=== PATIENT | female | born 1995 | race Hispanic/Latino ===

== ENCOUNTER 2022-02-15 14:28 | Inpatient (IN) | payer OTHER ==
[~2022-02-15] VITALS: Ht 157.5 cm; Wt 115.7 kg
[2022-02-15 15:54] LABS: MEAN CORPUSCULAR HEMOGLOBIN 25.6 pg (27.0-33.0); MEAN CORPUSCULAR HGB CONC 31.3 g/dL (32.0-36.0); MEAN CORPUSCULAR VOLUME 82.1 fL (79-99); RED BLOOD CELL COUNT(AUTO) 3.9 MIL/uL (4.00-5.50); RED CELL DISTRIBUTION WIDTH 14.9 % (11.0-15.5); WHITE BLOOD COUNT (AUTO) 9.1 K/uL (4.8-10.8)
[2022-02-15 15:56] LABS: APPEARANCE,URINE Clear (CLEAR); BILIRUBIN,URINE Negative (NEGATIVE); COLOR,URINE Yellow (YELLOW); GLUCOSE, URINE (UA) Negative (NEGATIVE); KETONES,URINE Trace mg/dL (NEGATIVE); LEUKOCYTE ESTERASE ,URINE Negative (NEGATIVE); NITRATE,URINE Negative (NEGATIVE); OCCULT BLOOD,URINE Negative (NEGATIVE); PH,URINE 6.5 (5.0-8.0); PROTEIN,URINE POS 1+ mg/dL (NEGATIVE)
[2022-02-15 16:07] LABS: CREATININE 0.7 mg/dL (0.5-1.5); POTASSIUM 3.7 mmol/L (3.5-5.1)
[2022-02-15 16:09] LABS: INR 0.93 (0.85-1.15); PROTHROMBIN TIME 9.9 SEC (9.6-11.6)
[2022-02-15 16:11] LABS: PARTIAL THROMBOPLASTIN TIME 23.9 SEC (26.3-35.5)
[2022-02-15 16:14] LABS: BACTERIA,URINE None Seen /HPF (None Seen); MUCUS,URINE Few LPF (None Seen); RBC,URINE 0-1 /HPF (0-1); SQUAMOUS EPITHELIAL CELL,UR None Seen /HPF (0-2); WBC,URINE 0-1 /HPF (0-1)
[2022-02-15 16:15] LABS: ALBUMIN 2.8 g/dL (3.5-5.0); BILIRUBIN,TOTAL 0.3 mg/dL (0.2-1.0); TOTAL PROTEIN, SERUM 7.2 g/dL (6.0-8.3); URIC ACID 4.2 mg/dL (2.6-7.2)
[2022-02-15] MEDS ORDERED: ROPIVACAINE 0.2% 100ML VIAL 100 ML EP SCH (17:00)
[2022-02-15] MEDS ORDERED: LACTATED RINGERS 500 ML 500 ML IV PRN (17:00)
[2022-02-15] MEDS ORDERED: MEPERIDINE-PF 50 MG/ML SYG IVP PRN (17:00)
[2022-02-15] MEDS ORDERED: NALOXONE HCL 0.4 MG/1 ML ML IV PRN (17:00)
[2022-02-15] MEDS ORDERED: PROMETHAZINE HCL 25 MG/ML 1ML AMPULE IM PRN (17:00)
[2022-02-15] MEDS ORDERED: AMPICILLIN 2GM+NS 100ML 100 ML IV SCH (17:00)
[2022-02-15] MEDS: AMPICILLIN 1GM+NS 50ML 50 ML IV SCH ×2 (17:00→21:54)
[2022-02-15] MEDS ORDERED: EPHEDRINE SULFATE 50 MG/ML AMPULE IVP PRN (17:00)
[2022-02-15] MEDS ORDERED: MISOPROSTOL 100 MCG TABLET VG SCH (19:00)
[2022-02-15 19:14] LABS: AMPHET/METH SCREEN,URINE NEGATIVE (NEGATIVE); BARBITURATE SCREEN, URINE NEGATIVE (NEGATIVE); BENZODIAZEPINES SCREEN,URINE NEGATIVE (NEGATIVE); CANNABINOID SCREEN,URINE NEGATIVE (NEGATIVE); COCAINE SCREEN,URINE NEGATIVE (NEGATIVE); OPIATE SCREEN,URINE NEGATIVE (NEGATIVE); PHENCYCLIDINE SCREEN,URINE NEGATIVE (NEGATIVE)
[2022-02-15] MEDS: MISOPROSTOL 25 MCG TABLET VG SCH ×2 (19:50→23:41)
[2022-02-16] MEDS: AMPICILLIN 1GM+NS 50ML 50 ML IV SCH ×6 (01:37→21:44)
[2022-02-16] MEDS: LACTATED RINGERS 1000ML 1,000 ML IV PRN ×3 (01:39→23:07)
[2022-02-16] MEDS: MISOPROSTOL 25 MCG TABLET VG SCH ×2 (03:36→21:45)
[2022-02-16] MEDS ORDERED: OXYTOCIN-LR 20 UNITS/1000 ML 1,000 ML IV SCH (07:00)
[2022-02-16] MEDS ORDERED: MISOPROSTOL 25 MCG TABLET ONE (17:45)
[2022-02-16] MEDS ORDERED: MISOPROSTOL 100 MCG TABLET VG SCH (18:00)
[2022-02-17] MEDS: AMPICILLIN 1GM+NS 50ML 50 ML IV SCH ×4 (01:46→10:32)
[2022-02-17] MEDS: MISOPROSTOL 25 MCG TABLET VG SCH ×2 (01:47→06:00)
[2022-02-17] MEDS ORDERED: OXYTOCIN-LR 20 UNITS/1000 ML 1,000 ML IV SCH (06:00)
[2022-02-17] MEDS: LACTATED RINGERS 1000ML 1,000 ML IV PRN (08:44)
== END 2022-02-17 16:37 | disposition home or self-care (01) | DRG 833 ==
LOC: LDH 14:28 → OBSVTOIN 14:28
PROVIDERS: ADMIT Obstetrics & Gynecology; ATTEND Obstetrics & Gynecology
DX: O13.3 Gestational [pregnancy-induced] hypertension without significant proteinuria, third trimester (principal); O99.213 Obesity complicating pregnancy, third trimester; O99.820 Streptococcus B carrier state complicating pregnancy; Z3A.38 38 weeks gestation of pregnancy
CPT/HCPCS: 36415; 76805; 80053; 80305; 81001; 84550; 85027; 85384; 85610; 85730; 86592; 86850; 86900; 86901; 87340; G0378; J0290; J2590; J7120

== ENCOUNTER 2022-02-22 14:06 | Inpatient (IN) | payer OTHER ==
[~2022-02-22] VITALS: Ht 157.5 cm; Wt 115.7 kg
[2022-02-22] MEDS: LACTATED RINGERS 1000ML 1,000 ML IV PRN (14:45)
[2022-02-22 15:24] LABS: APPEARANCE,URINE Clear (CLEAR); BILIRUBIN,URINE Negative (NEGATIVE); COLOR,URINE Yellow (YELLOW); GLUCOSE, URINE (UA) Negative (NEGATIVE); KETONES,URINE Trace mg/dL (NEGATIVE); LEUKOCYTE ESTERASE ,URINE Trace (NEGATIVE); NITRATE,URINE Negative (NEGATIVE); OCCULT BLOOD,URINE Negative (NEGATIVE); PH,URINE 6.5 (5.0-8.0); PROTEIN,URINE POS 2+ mg/dL (NEGATIVE)
[2022-02-22 15:25] LABS: MEAN CORPUSCULAR HEMOGLOBIN 24.9 pg (27.0-33.0); MEAN CORPUSCULAR HGB CONC 30.6 g/dL (32.0-36.0); MEAN CORPUSCULAR VOLUME 81.2 fL (79-99); PLATELET COUNT (AUTO) 313 K/uL (130-400); RED BLOOD CELL COUNT(AUTO) 3.82 MIL/uL (4.00-5.50); RED CELL DISTRIBUTION WIDTH 15.2 % (11.0-15.5); WHITE BLOOD COUNT (AUTO) 8.1 K/uL (4.8-10.8)
[2022-02-22] MEDS ORDERED: MEPERIDINE-PF 50 MG/ML SYG IVP PRN (15:30)
[2022-02-22] MEDS ORDERED: PROMETHAZINE HCL 25 MG/ML 1ML AMPULE IM PRN (15:30)
[2022-02-22] MEDS ORDERED: EPHEDRINE SULFATE 50 MG/ML AMPULE IVP PRN (15:30)
[2022-02-22] MEDS ORDERED: LACTATED RINGERS 500 ML 500 ML IV PRN (15:30)
[2022-02-22] MEDS ORDERED: OXYTOCIN-LR 20 UNITS/1000 ML 1,000 ML IV SCH (15:30)
[2022-02-22] MEDS ORDERED: NALOXONE HCL 0.4 MG/1 ML ML IV PRN (15:30)
[2022-02-22 15:31] LABS: INR 0.93 (0.85-1.15); PROTHROMBIN TIME 9.8 SEC (9.6-11.6)
[2022-02-22 15:33] LABS: PARTIAL THROMBOPLASTIN TIME 25.3 SEC (26.3-35.5)
[2022-02-22 15:35] LABS: CREATININE 0.7 mg/dL (0.5-1.5); POTASSIUM 3.8 mmol/L (3.5-5.1)
[2022-02-22 15:37] LABS: BACTERIA,URINE Few /HPF (None Seen); MUCUS,URINE Moderate LPF (None Seen); RBC,URINE 0-1 /HPF (0-1); SQUAMOUS EPITHELIAL CELL,UR Few /HPF (0-2)
[2022-02-22 15:39] LABS: AMPHET/METH SCREEN,URINE NEGATIVE (NEGATIVE); BARBITURATE SCREEN, URINE NEGATIVE (NEGATIVE); BENZODIAZEPINES SCREEN,URINE NEGATIVE (NEGATIVE); CANNABINOID SCREEN,URINE NEGATIVE (NEGATIVE); COCAINE SCREEN,URINE NEGATIVE (NEGATIVE); OPIATE SCREEN,URINE NEGATIVE (NEGATIVE); PHENCYCLIDINE SCREEN,URINE NEGATIVE (NEGATIVE)
[2022-02-22 15:40] LABS: ALBUMIN 2.5 g/dL (3.5-5.0); BILIRUBIN,TOTAL 0.2 mg/dL (0.2-1.0); TOTAL PROTEIN, SERUM 6.6 g/dL (6.0-8.3); URIC ACID 4.3 mg/dL (2.6-7.2)
[2022-02-22] MEDS ORDERED: MAGNESIUM 4GM PREMIX 100ML 100 ML IV PRN (17:30)
[2022-02-22] MEDS ORDERED: MAGNESIUM SULFATE 40GM/1000ML 1,000 ML IV PRN (17:30)
[2022-02-22] MEDS ORDERED: CALCIUM GLUC 1GM/10ML VIAL IV PRN (17:30)
[2022-02-22] MEDS ORDERED: MISOPROSTOL 25 MCG TABLET ONE ×2 (18:35→22:56)
[2022-02-22] MEDS: MISOPROSTOL 100 MCG TABLET VG SCH (18:40)
[2022-02-23] MEDS: LACTATED RINGERS 1000ML 1,000 ML IV PRN (00:18)
[2022-02-23] MEDS ORDERED: MISOPROSTOL 25 MCG TABLET ONE (03:04)
[2022-02-23] MEDS ORDERED: OXYTOCIN-LR 20 UNITS/1000 ML 1,000 ML IV SCH (06:00)
[2022-02-23] MEDS ORDERED: CALDOLOR 800MG+NS 250ML 250 ML IV PRN (09:30)
[2022-02-23] MEDS ORDERED: CEFAZOLIN SODIUM 1 GM VIAL IVP PRN (09:30)
[2022-02-23] MEDS ORDERED: MISOPROSTOL 200 MCG TABLET ONE (10:49)
[2022-02-23] MEDS ORDERED: OXYTOCIN 10 USP UNITS/ML IV PRN (13:00)
[2022-02-23] MEDS ORDERED: ONDANSETRON 4MG INJ IVP PRN (13:00)
[2022-02-23] MEDS ORDERED: MAGNESIUM 4GM PREMIX 100ML 100 ML IV PRN (13:00)
[2022-02-23] MEDS ORDERED: CALCIUM GLUC 1GM/10ML VIAL IV PRN (13:00)
[2022-02-23] MEDS ORDERED: MEPERIDINE-PF 75 MG/ML SYG IM PRN (13:00)
[2022-02-23] MEDS ORDERED: PROMETHAZINE HCL 25 MG/ML 1ML AMPULE IM PRN (13:00)
[2022-02-23] MEDS ORDERED: LACTATED RINGERS 1000ML 1,000 ML IV SCH (13:00)
[2022-02-23] MEDS ORDERED: MAGNESIUM SULFATE 40GM/1000ML 1,000 ML IV PRN (13:00)
[2022-02-23] MEDS ORDERED: DiphenhydrAMINE HCL 50 MG/ML VIAL IVP PRN (13:00)
[2022-02-23] MEDS ORDERED: NALOXONE HCL 0.4 MG/1 ML ML IVP PRN ×2 (13:30)
[2022-02-23] MEDS ORDERED: LORATADINE 10 MG TABLET PO PRN (13:30)
[2022-02-23 17:20] VITALS: BP 142/76
[2022-02-23] MEDS ORDERED: PREN1TAB80 PO (17:37)
[2022-02-23 19:15] VITALS: BP 137/87
[2022-02-23] MEDS: CALDOLOR 800MG+NS 250ML 250 ML IV SCH (20:09)
[2022-02-23] MEDS: DEXTROSE 5 %-0.45 % NACL 1,000 ML IV SCH (22:50)
[2022-02-23 23:30] VITALS: BP 134/81
[2022-02-24 03:55] VITALS: BP 112/77
[2022-02-24] MEDS: CALDOLOR 800MG+NS 250ML 250 ML IV SCH (03:58)
[2022-02-24] MEDS: DEXTROSE 5 %-0.45 % NACL 1,000 ML IV SCH (03:59)
[2022-02-24] MEDS ORDERED: BISACODYL 10 MG SUPP.RECT RC PRN (05:30)
[2022-02-24] MEDS ORDERED: ACETAMINOPHEN WITH CODEINE 1 TAB TAB PO PRN (05:30)
[2022-02-24] MEDS ORDERED: HYDROCODONE/ACETAMINOPHEN 5/325 MG TAB PO PRN (05:30)
[2022-02-24] MEDS ORDERED: ACETAMINOPHEN 500 MG TABLET PO PRN (05:30)
[2022-02-24] MEDS ORDERED: LANOLIN 30GM OINTMENT TP PRN (05:30)
[2022-02-24 06:48] LABS: HEMATOCRIT 27.4 % (36-48); MEAN CORPUSCULAR HEMOGLOBIN 24.6 pg (27.0-33.0); MEAN CORPUSCULAR HGB CONC 29.9 g/dL (32.0-36.0); MEAN CORPUSCULAR VOLUME 82.3 fL (79-99); RED BLOOD CELL COUNT(AUTO) 3.33 MIL/uL (4.00-5.50); RED CELL DISTRIBUTION WIDTH 15.4 % (11.0-15.5); WHITE BLOOD COUNT (AUTO) 7.1 K/uL (4.8-10.8)
[2022-02-24 06:54] VITALS: BP 122/77
[2022-02-24] MEDS: SIMETHICONE 80 MG TAB.CHEW PO PRN ×3 (08:48→20:31)
[2022-02-24] MEDS: DOCUSATE SODIUM 100 MG CAP PO SCH ×2 (08:48→20:31)
[2022-02-24 11:40] VITALS: BP 137/89
[2022-02-24] MEDS: IBUPROFEN 800 MG TAB PO SCH ×2 (15:08→20:32)
[2022-02-24 15:30] VITALS: BP_SYST 108; BP_SYST 133; BP_DIAS 70; BP_DIAS 73
[2022-02-24 19:15] VITALS: BP 141/77
[2022-02-24 23:25] VITALS: BP 137/72
[2022-02-24] MEDS: MISOPROSTOL 100 MCG TABLET VG SCH (23:30)
[2022-02-25 03:56] VITALS: BP 145/77
[2022-02-25] MEDS: IBUPROFEN 800 MG TAB PO SCH ×2 (04:19→14:35)
[2022-02-25 07:09] VITALS: BP 130/68
[2022-02-25] MEDS: SIMETHICONE 80 MG TAB.CHEW PO PRN ×2 (08:50→14:43)
[2022-02-25] MEDS: DOCUSATE SODIUM 100 MG CAP PO SCH (08:58)
[2022-02-25 12:00] VITALS: BP 139/80
[2022-02-25] MEDS ORDERED: IBUP-2077 PO (14:25)
[2022-02-25] MEDS ORDERED: DOCU-116 PO (14:25)
[2022-02-25] MEDS ORDERED: ACET-2079 PO (14:27)
[2022-02-25 15:25] VITALS: BP 134/80
== END 2022-02-25 15:05 | disposition home or self-care (01) | DRG 788 ==
LOC: LDH 14:06 → WSH 02-23 17:25
PROVIDERS: ADMIT Obstetrics & Gynecology; ATTEND Obstetrics & Gynecology
PROC: 10D00Z1 Extraction of Products of Conception, Low, Open Approach (ICD-10-PCS; principal; 2022-02-23 11:25)
DX: O61.9 Failed induction of labor, unspecified (principal); O14.04 Mild to moderate pre-eclampsia, complicating childbirth; O99.214 Obesity complicating childbirth; Z3A.39 39 weeks gestation of pregnancy; Z37.0 Single live birth; Z20.822 Contact with and (suspected) exposure to COVID-19; O99.02 Anemia complicating childbirth; O13.4 Gestational [pregnancy-induced] hypertension without significant proteinuria, complicating childbirth
CPT/HCPCS: 36415; 59510; 80053; 80305; 81001; 83735; 84550; 85027; 85384; 85610; 85730; 86592; 86850; 86900; 86901; 87340; A4344; G0378; J0690; J1741; J2590; J3475; J7120

== ENCOUNTER 2022-03-02 12:17 | Observation (INO) | payer OTHER ==
[~2022-03-02] VITALS: Ht 157.5 cm; Wt 104.0 kg
[~2022-03-02 12:17] MED LIST: ACET-2079 PO; DOCU-116 PO; IBUP-2077 PO; PREN1TAB80 PO
[2022-03-02] MEDS ORDERED: HYDRALAZINE 20MG/ML VIAL ONE (12:58)
[2022-03-02] MEDS ORDERED: HYDRALAZINE 20MG/ML VIAL IV SCH (13:30)
[2022-03-02] MEDS ORDERED: LACTATED RINGERS 1000ML 1,000 ML IV PRN (13:30)
[2022-03-02 13:34] LABS: APPEARANCE,URINE Clear (CLEAR); BILIRUBIN,URINE Negative (NEGATIVE); COLOR,URINE Yellow (YELLOW); GLUCOSE, URINE (UA) Negative (NEGATIVE); KETONES,URINE Negative (NEGATIVE); LEUKOCYTE ESTERASE ,URINE Negative (NEGATIVE); NITRATE,URINE Negative (NEGATIVE); OCCULT BLOOD,URINE Negative (NEGATIVE); PH,URINE 7.5 (5.0-8.0); PROTEIN,URINE Negative (NEGATIVE); UROBILINOGEN,URINE 0.2 mg/dL (0.2-1.0)
[2022-03-02 13:35] LABS: INR 0.94 (0.85-1.15); PROTHROMBIN TIME 10.3 SEC (9.6-11.6)
[2022-03-02 13:37] LABS: PARTIAL THROMBOPLASTIN TIME 27.9 SEC (26.3-35.5)
[2022-03-02 13:38] LABS: ALBUMIN 3.2 g/dL (3.5-5.0); BILIRUBIN,TOTAL 0.4 mg/dL (0.2-1.0); CREATININE 0.6 mg/dL (0.5-1.5); POTASSIUM 4.2 mmol/L (3.5-5.1); URIC ACID 3.7 mg/dL (2.6-7.2)
[2022-03-02] MEDS ORDERED: MAGNESIUM 4GM PREMIX 100ML 100 ML IV ONE (13:48)
[2022-03-02] MEDS ORDERED: MAGNESIUM SULFATE 40GM/1000ML 1,000 ML IV ONE (13:48)
[2022-03-02] MEDS ORDERED: MAGNESIUM 4GM PREMIX 100ML 100 ML IV PRN ×2 (14:00)
[2022-03-02] MEDS ORDERED: HYDRALAZINE 20MG/ML VIAL IV ONE (14:00)
[2022-03-02] MEDS ORDERED: MAGNESIUM SULFATE 40GM/1000ML 1,000 ML IV PRN (14:00)
[2022-03-02] MEDS ORDERED: LACTATED RINGERS 1000ML 1,000 ML IV SCH (14:00)
[2022-03-02] MEDS ORDERED: CALCIUM GLUC 1GM/10ML VIAL IV PRN (14:00)
[2022-03-02] MEDS ORDERED: ACETAMINOPHEN 325 MG TAB PO PRN (18:00)
[2022-03-02] MEDS ORDERED: IBUPROFEN 600 MG TABLET PO PRN (18:00)
[2022-03-03] MEDS: LABETALOL HCL 100 MG TABLET PO SCH ×2 (09:03→21:02)
[2022-03-03 17:40] VITALS: BP 136/76
[2022-03-03 19:30] VITALS: BP 125/87
[2022-03-03 21:02] VITALS: BP 138/82
[2022-03-03 23:22] VITALS: BP 131/81
[2022-03-04 03:10] VITALS: BP 123/81
[2022-03-04 07:40] VITALS: BP 132/73
[2022-03-04] MEDS: LABETALOL HCL 100 MG TABLET PO SCH (08:57)
[2022-03-04 11:50] VITALS: BP 132/76
[2022-03-04] MEDS ORDERED: LABE1PLA PO (12:31)
== END 2022-03-04 12:50 | disposition home or self-care (01) ==
LOC: EDH 12:17 → LDH 12:18 → WSH 03-03 17:40
PROVIDERS: ADMIT Obstetrics & Gynecology; ATTEND Obstetrics & Gynecology
DX: O14.90 Unspecified pre-eclampsia, unspecified trimester (principal); Z3A.40 40 weeks gestation of pregnancy
CPT/HCPCS: 36415; 80053; 81003; 84550; 85384; 85610; 85730; 93005; 96365; 96366 ×2; 96375; 96376; G0378 ×48; J0360 ×2; J3475 ×2; J7120